=== PATIENT | male | born 1990 | race Caucasian/White ===

== ENCOUNTER 2016-11-05 16:14 | Emergency (ER) | payer BC ==
[2016-11-05 16:35] VITALS: BMI 33.5
[2016-11-05 16:44] VITALS: TEMP 98.4
--- NOTE | 2016-11-05 16:55 | PDOC ---
History of Present Illness - General Chief Complaint: Palpitations Stated Complaint: Palpitations Time Seen by Provider: 11/05/16 16:26 History Source: Patient Exam Limitations: No Limitations - History of Present Illness Initial Comments: CHIEF COMPLAINT: 26 y/o afebrile male with no significant PMH c/o chest pain today. HISTORY OF PRESENT ILLNESS: The patient states he was driving in his car when he experiences left sided, "burning" chest pain. He had never experienced that before so he became very nervous and states his heart started racing. He denies f/c, n/v/d, SOB, abd pain, back pain, drug/alcohol use. The patient did take a work out supplement at 11:30am but he states he's taken that in the past without any issues. He is a smoker. Vital signs on arrival are notable for pulse of 117. REVIEW OF SYSTEMS: GENERAL/CONSTITUTIONAL: No fever/chills. No weakness. No weight change. HEAD, EYES, EARS, NOSE AND THROAT: No change in vision. No ear pain or discharge. No sore throat. CARDIOVASCULAR: +CP and palpitations. No SOB RESPIRATORY: No cough, wheezing, or hemoptysis. GASTROINTESTINAL: No abd pain, nausea, vomiting, diarrhea. GENITOURINARY: No dysuria, frequency, or change in urination. MUSCULOSKELETAL: No joint or muscle swelling or pain. No neck or back pain. SKIN: No rash or easy bruising. NEUROLOGIC: No headache, vertigo, loss of consciousness, or loss of sensation. PHYSICAL EXAM: GENERAL: The patient is awake, alert, and fully oriented, in no acute distress. He is well appearing. No diaphoresis. HEAD: Normal with no signs of trauma. ENT: Pupils equal, round and reactive to light, extraocular movements intact, sclera anicteric, conjunctiva clear. Neck supple. LUNGS: Clear to auscultation bilaterally. Normal excursion. No respiratory distress or use of accessory muscles. CV: Rapid rate/regular rhythm, S1/S2, no MRG. Cap refill < 2 sec. CHEST WALL: No reproducible chest wall pain with palpation. ABDOMEN: Soft, non-distended, non-tender even to deep palpation, no hepatomegaly or splenomegaly, no masses. EXTREMITIES: Normal range of motion, no edema. NEUROLOGICAL: Normal speech, normal gait. CN II-XII grossly intact. PSYCH: Normal mood, normal affect. SKIN: Warm, dry, normal turgor, no rashes or lesions noted. Past History - Past Medical History Allergies/Adverse Reactions: Allergies Allergy/AdvReac Type Severity Reaction Status Date / Time No Known Allergies Allergy Verified 11/05/16 16:37 Home Medications: Ambulatory Orders NK [No Known Home Medication] 11/05/16 Thyroid Disease: No - Immunization History Td Vaccination: No Immunization Up to Date: Yes - Psycho/Social/Smoking Cessation Hx Anxiety: No Suicidal Ideation: No Smoking Status: No Smoking History: Never smoked Have you smoked in the past 12 months: No Number of Cigarettes Smoked Daily: 0 Information on smoking cessation initiated: No Hx Alcohol Use: No Drug/Substance Use Hx: No Substance Use Type: None *Physical Exam - Vital Signs Last Vital Signs Temp Pulse Resp BP Pulse Ox 98.4 F 117 H 18 126/96 100 11/05/16 16:40 11/05/16 16:15 11/05/16 16:15 11/05/16 16:15 11/05/16 17:02 Heart Score/ECG Review - ECG Intrepretation Comment:: Twelve-lead EKG was performed and reviewed by Dr. Soares. There is normal sinus tachycardia with a rate of 102bpm. The axis is normal. The intervals are normal. There are no ST or T wave abnormalities. Impression: Otherwise normal twelve-lead EKG ED Treatment Course - LABORATORY CBC & Chemistry Diagram: 11/05/16 16:50 11/05/16 16:50 - ADDITIONAL ORDERS Additional order review: Laboratory Results 11/05/16 11/05/16 11/05/16 17:25 17:25 16:50 Sodium Potassium Chloride Carbon Dioxide Anion Gap BUN Creatinine Creat Clearance w eGFR Random Glucose Calcium Total Bilirubin AST ALT Alkaline Phosphatase Creatine Kinase Creatine Kinase Index CK-MB (CK-2) CK-MB (CK-2) Rel Index Cancelled Troponin I Total Protein Albumin Urine Color Ltyellow Urine Appearance Clear Urine pH 5.0 Ur Specific [place] 1.014 Urine Protein Negative Urine Glucose (UA) Negative Urine Ketones Negative Urine Blood Negative Urine Nitrite Negative Urine Bilirubin Negative Urine Urobilinogen Negative Ur Leukocyte Esterase Negative Opiates Screen Negative Methadone Screen Negative Barbiturate Screen Negative Phencyclidine Screen Negative Ur Amphetamines Screen Negative MDMA (Ecstasy) Screen Negative Benzodiazepines Screen Negative Cocaine Screen Negative U Marijuana (THC) Screen Negative 11/05/16 16:50 Sodium 141 Potassium 3.6 Chloride 104 Carbon Dioxide 29 D Anion Gap 8 BUN 16 Creatinine 1.3 D Creat Clearance w eGFR > 60 Random Glucose 136 H D Calcium 9.1 Total Bilirubin 0.3 D AST 15 D ALT 40 Alkaline Phosphatase 89 Creatine Kinase 204 D Creatine Kinase Index 1.0 CK-MB (CK-2) 2.128 CK-MB (CK-2) Rel Index Troponin I 0.03 D Total Protein 7.2 Albumin 4.1 Urine Color Urine Appearance Urine pH Ur Specific [place] Urine Protein Urine Glucose (UA) Urine Ketones Urine Blood Urine Nitrite Urine Bilirubin Urine Urobilinogen Ur Leukocyte Esterase Opiates Screen Methadone Screen Barbiturate Screen Phencyclidine Screen Ur Amphetamines Screen MDMA (Ecstasy) Screen Benzodiazepines Screen Cocaine Screen U Marijuana (THC) Screen 11/05/16 16:50 RBC 5.44 MCV 86.9 MCHC 35.2 RDW 12.9 MPV 9.3 Neutrophils % 69.0 D Lymphocytes % 20.2 D Monocytes % 9.2 Eosinophils % 1.2 Basophils % 0.4 - RADIOLOGY Radiology Studies Ordered: Category Date Time Status CHEST PA & LAT [RAD] Stat Radiology 11/05/16 16:54 Taken Medical Decision Making - Medical Decision Making A/P: 26 y/o afebrile male with chest pain and palpitations today. Plan is as follows: 1. EKG 2. CXR 3. Labs 4. U tox 5. IV benadryl EKG shows sinus tachycardia with HR of 102 FINDINGS: No acute cardiopulmonary disease. No focal pneumonia. Hypoinflation. Labs unremarkable. UA normal U tox negative The patient states he feels much better and his heart rate is now 80bpm. Provided the patient with all of his results. Strongly encouraged him to f/u with Dr. Matthews as soon as possible. Suggested he take Benadryl if needed for anxiety, and return to the ER immediately with any worsening or concerning symptoms. The patient verbalizes understanding of all instructions, has no further questions and is awaiting discharge. *DC/Admit/Observation/Transfer Diagnosis at time of Disposition: Atypical chest pain, Anxiety - Discharge Dispostion Disposition: HOME Condition at time of disposition: Improved - Referrals Referrals: Gino Matthews MD [Staff Physician] - (Please call this aging box hand for follow up within 1 week) - Patient Instructions Printed Discharge Instructions: DI for Atypical Chest Pain, DI for Anxiety -- Adult Additional Instructions: Discharge Instructions: -If you feel anxious you can take over the counter benadryl -Follow up with Dr. Matthews (information provided in the discharge paperwork), Religion Professor, as soon as possible -Return to the ER immediately with any worsening or concerning symptoms
[2016-11-05 17:03] LABS: BASOPHIL 0.4 % (0-2.0); EOSINOPHIL 1.2 % (0-4.5); MCH 30.6 pg (25.7-33.7); MCHC 35.2 g/dl (32.0-35.9); MEAN CELL VOLUME 86.9 fl (80-96); MEAN PLT VOLUME 9.3 fl (7.5-11.1); PLATELET COUNT 169 K/MM3 (134-434); RDW 12.9 % (11.9-15.9); WHITE BLOOD COUNT 10.7 K/mm3 (4.0-10.0)
[2016-11-05 17:37] LABS: URINE APPEARANCE CLEAR; URINE BILIRUBIN NEGATIVE (NEGATIVE); URINE BLOOD NEGATIVE (NEGATIVE); URINE COLOR LTYELLOW; URINE GLUCOSE (UA) NEGATIVE (NEGATIVE); URINE KETONE NEGATIVE (NEGATIVE); URINE LEUK ESTERASE NEGATIVE (NEGATIVE); URINE NITRITE NEGATIVE (NEGATIVE); URINE PROTEIN NEGATIVE (NEGATIVE); URINE UROBILINOGEN NEGATIVE E.U./dl (0.2-1.0)
[2016-11-05 17:53] LABS: URINE MARIJUANA THC NEGATIVE ng/ml (CUTOFF=50)
[2016-11-05 18:09] LABS: ALBUMIN 4.1 g/dl (3.4-5.0); ANION GAP 8 (8-16); BILIRUBIN,TOTAL 0.3 mg/dL (0.2-1.0); CALCIUM 9.1 mg/dL (8.5-10.1); CO2 29 mmol/L (21-32); CREATININE 1.3 mg/dL (0.7-1.3); GLUCOSE,RANDOM 136 mg/dL (74-106); SGOT/AST 15 U/L (15-37); SGPT/ALT 40 U/L (12-78); TOT PROT 7.2 g/dl (6.4-8.2)
[2016-11-05 18:12] LABS: ALK PHOS 89 U/L (45-117); TROPONIN I 0.03 ng/ml (0.00-0.05)
[2016-11-05 19:12] VITALS: BP 127/86; PULSE 92
--- NOTE | 2016-11-06 13:33 | EKG ---
Test Reason : Blood Pressure : / mmHG Vent. Rate : 102 BPM Atrial Rate : 102 BPM P-R Int : 150 ms QRS Dur : 090 ms QT Int : 318 ms P-R-T Axes : 065 062 040 degrees QTc Int : 414 ms SINUS TACHYCARDIA NONSPECIFIC ST AND T WAVE ABNORMALITY WHEN COMPARED WITH ECG OF 05-SEP-2012 11:13, VENT. RATE HAS INCREASED BY 43 BPM Confirmed by JAYME WHITE MD ([id number]) on 11/06/2016 1:33:24 PM Referred By: Confirmed By:JAYME WHITE MD
== END 2016-11-05 19:12 | disposition home or self-care (01) ==
LOC: JER 16:14
DX: R07.89 Other chest pain (principal); R00.2 Palpitations; F41.9 Anxiety disorder, unspecified
CPT/HCPCS: 36415; 71020-TC; 80053; 80307; 81003; 82550; 82553; 84484; 85025; 93005; 93010; 99284-25